=== PATIENT | male | born 1995 | race Hispanic/Latino ===

== ENCOUNTER 2024-09-09 10:19 | Emergency (ER) | payer BC ==
[~2024-09-09] VITALS: Ht 177.8 cm; Wt 105.5 kg
[2024-09-09 11:27] VITALS: TEMP 98.6
[2024-09-09 11:36] LABS: BASO % 0.6 % (0.0-1.0); EOS # 0.1 10^3/uL (0.0-0.5); EOS % 1.5 % (0.0-3.0); HEMATOCRIT 46.4 % (42.0-52.0); HEMOGLOBIN 15.6 g/dl (13.5-17.5); LYMPH # 1.3 10^3/uL (1.5-5.0); LYMPH % 24.4 % (24.0-44.0); MEAN CORPUSCULAR HEMOGLOBIN 28.7 pg (27.0-33.0); MEAN CORPUSCULAR HGB CONC 33.6 g/dl (32.0-36.5); MEAN CORPUSCULAR VOLUME 85.3 fl (80.0-96.0); MONO # 0.3 10^3/uL (0.0-0.8); MONO % 5.7 % (2.0-8.0); NEUTROPHILS # 3.6 10^3/uL (1.5-8.5); NEUTROPHILS % 67.6 % (36.0-66.0); PLATELET COUNT, AUTOMATED 244 10^3/uL (150-450); RED BLOOD COUNT 5.44 10^6/uL (4.30-6.10); WHITE BLOOD COUNT 5.3 10^3/uL (4.0-10.0)
[2024-09-09 11:59] LABS: CK-MB VALUE MASS < 1.0 NG/ML (<3.6)
[2024-09-09 12:00] LABS: BLOOD UREA NITROGEN 12 MG/DL (9-23); CALCIUM LEVEL 9.9 MG/DL (8.5-10.1); CARBON DIOXIDE LEVEL 30 MMOL/L (20-31); CHLORIDE LEVEL 106 MMOL/L (98-107); CREATININE FOR GFR 0.72 MG/DL (0.70-1.30); GLOMERULAR FILTRATION RATE > 60.0 (>60); GLUCOSE, FASTING 89 MG/DL (60-100); POTASSIUM SERUM 4.4 MMOL/L (3.5-5.1); SODIUM LEVEL 139 MMOL/L (136-145)
[2024-09-09 12:03] LABS: CPK CREATINE PHOSPHOKINASE 69 U/L (46-171); MB/CK RELATIVE INDEX 1.44 (< OR =4)
[2024-09-09 12:45] VITALS: BP 104/57; O2SAT 99
== END 2024-09-09 13:01 | disposition home or self-care (01) ==
LOC: M ED 10:19
DX: R07.9 Chest pain, unspecified (principal); Z86.73 Personal history of transient ischemic attack (TIA), and cerebral infarction without residual deficits

== ENCOUNTER 2025-01-28 13:19 | Emergency (ER) | payer BC ==
[~2025-01-28] VITALS: Ht 177.8 cm; Wt 105.4 kg
[2025-01-28 15:26] VITALS: BP 124/85; TEMP 97; O2SAT 97
== END 2025-01-28 15:37 | disposition home or self-care (01) ==
LOC: M ED 13:19
DX: J06.9 Acute upper respiratory infection, unspecified (principal); R11.10 Vomiting, unspecified; R19.7 Diarrhea, unspecified; Z88.6 Allergy status to analgesic agent; Z88.5 Allergy status to narcotic agent; Z88.8 Allergy status to other drugs, medicaments and biological substances; Z88.1 Allergy status to other antibiotic agents

== ENCOUNTER 2025-03-19 15:50 | Emergency (ER) | payer BC ==
[~2025-03-19] VITALS: Ht 177.8 cm; Wt 109.1 kg
[2025-03-19] MEDS ORDERED: ONDA-282 PO (18:38)
[2025-03-19 18:45] VITALS: BP 135/87; TEMP 99.5; O2SAT 99
== END 2025-03-19 18:57 | disposition home or self-care (01) ==
LOC: M ED 15:50
DX: J06.9 Acute upper respiratory infection, unspecified (principal); B34.1 Enterovirus infection, unspecified; Z88.6 Allergy status to analgesic agent; Z88.1 Allergy status to other antibiotic agents; Z88.5 Allergy status to narcotic agent; Z88.8 Allergy status to other drugs, medicaments and biological substances; Z79.83 Long term (current) use of bisphosphonates